=== PATIENT | female | born 1995 | race Caucasian/White ===

== ENCOUNTER → 2020-09-30 | Outpatient (CLI) | payer BC ==
[~2020-09-30] MED LIST: CYPR4TAB31 PO; LORA2ORA7 PO; RIZA10TA PO; SERT50TA PO
[2020-09-30] MEDS: GADOTERATE 7.5 MMOL/15ML VIAL. IVP ONE (10:14)
--- NOTE | 2020-09-30 11:10 | KCIC ---
MRI of the cervical spine without contrast 09/30/2020 CLINICAL HISTORY: Positional headaches after recent lumbar puncture. Spinal atrophy. Bladder incontin ence. TECHNIQUE: Unenhanced T1-weighted, T2-weighted and inversion recovery sagittal and gradient echo and T2-weighted axial images of the cervical spine were obtained. FINDINGS: Minimal lateral curvature of the cervical spine is seen convex to the left. There is slight reversal of the normal cervical lordosis. Degenerative signal changes are seen involving all of the disks of the cervical spine. The marrow signal of the visualized bony structures is within normal whiteside its. No area of abnormal signal intensity is seen involving the cervical spinal cord. No abnormal flu id collection is seen surrounding the cervical spine. On the axial images throughout the cervical vertebrae, degenerative changes are seen consisting of mi nimal to mild generalized disc bulges and degenerative changes involving the uncovertebral and facet joints. These findings do not result in significant central spinal canal or neural foraminal stenosis . . IMPRESSION: 1. No area of abnormal signal intensity is seen involving the cervical spinal cord. 2. Degenerative changes are seen involving cervical spine as discussed above. These findings do not r esult in significant central spinal canal or neural foraminal stenosis. Electronically signed by: Lorne Callaway MD (09/30/2020 11:07 AM) [id number]
--- NOTE | 2020-09-30 11:19 | KCIC ---
MRI of the Brain without and with Contrast 09/30/2020 Clinical History: New onset positional headaches. Technique: Unenhanced T1-weighted sagittal and axial and FLAIR, T2-weighted, and echo and diffusion-w eighted axial images of the brain were obtained. After the intravenous administration of 14 cc of Cla riscan, enhanced T1-weighted axial, sagittal and coronal images of the brain were obtained. Findings: The ventricles and sulci are within normal limits in size and configuration. No area of sig nificant abnormal signal intensity is seen involving the brain parenchyma. No extra-axial fluid colle ction is seen. No area of abnormal contrast enhancement is noted. There is no MRI evidence of acute i schemia/infarction. Mild mucosal thickening is seen scattered throughout the paranasal sinuses. There is a minimal right mastoid effusion. Mucus retention cysts are seen involving both maxillary sinuses which measure 5 mm to 1.6 cm in size. Normal flow voids are seen within the major vascular structures surrounding the br ain parenchyma. IMPRESSION: 1. Negative MRI of the brain. 2. Mild paranasal sinus and mastoid disease. Electronically signed by: Lorne Callaway MD (09/30/2020 11:16 AM) [id number]
--- NOTE | 2020-09-30 12:03 | KCIC ---
MRI of the lumbar spine without contrast 09/30/2020 CLINICAL HISTORY: History of frequent lumbar punctures. Positional headaches. Bladder incontinence. S yumi muscular atrophy. TECHNIQUE: Unenhanced T1-weighted and T2-weighted sagittal and axial and inversion recovery sagittal images of the lumbar spine were obtained. FINDINGS: Mild S-shaped curvature of the thoracolumbar spine is seen. The marrow signal of the visual ized bony structures is within normal limits. The morphology and signal characteristics of all the di sks of the lumbar spine are within normal limits. The conus medullaris is normal in position and sign al characteristics. Note is made of 1.7 cm perineural cyst within the sacral spinal canal. No abnorma l fluid collection is seen. Marked atrophy and fatty infiltration of the psoas muscles and paraspinal muscles throughout the lower thoracic and lumbar spine is seen. No significant degenerative changes are seen involving the thoracic spine. No focal disc herniation i s seen. No area of significant central spinal canal or neural foraminal stenosis is noted. IMPRESSION: 1. Marked atrophy and fatty infiltration of the psoas muscles and paraspinal muscles throughout the l ower thoracic and lumbar spine is seen. 2. No significant degenerative changes are seen involving the lumbar spine. No area of significant ce ntral spinal canal or neural foraminal stenosis is seen. 3. No abnormal fluid collection is seen. Electronically signed by: Lorne Callaway MD (09/30/2020 12:01 PM) [id number]
== END ==
LOC: KCIC MRI 08:03
PROVIDERS: ATTEND Internal Medicine
DX: G43.009 Migraine without aura, not intractable, without status migrainosus (principal); R51.0 Headache with orthostatic component, not elsewhere classified; R32 Unspecified urinary incontinence; M47.812 Spondylosis without myelopathy or radiculopathy, cervical region; N83.299 Other ovarian cyst, unspecified side; M25.48 Effusion, other site
CPT/HCPCS: 70553; 72141; 72148; A9575